=== PATIENT | female | born 1975 | race Caucasian/White ===

== ENCOUNTER 2018-04-03 10:32 | Day surgery (SDC) | payer BC ==
[2018-03-28 16:20] LABS: BASOPHILS % (AUTO) 0.7 % (0-1); EOSINOPHILS # (AUTO) 0.2 X10'3 (0-0.9); EOSINOPHILS % (AUTO) 3.9 % (0-6); LYMPHOCYTES # (AUTO) 1.7 X10'3 (1.1-4.8); LYMPHOCYTES % (AUTO) 31.8 % (21-51); MEAN CORPUSCULAR HEMOGLOBIN 31.7 PG (27.0-31.0); MEAN CORPUSCULAR VOLUME 90.5 FL (78-98); MEAN PLATELET VOLUME 10.1 FL (7.4-10.4); MONOCYTES # (AUTO) 0.3 X10'3 (0-0.9); MONOCYTES % (AUTO) 6.3 % (2-12); NEUTROPHILS # (AUTO) 3.1 X10'3 (1.8-7.7); NEUTROPHILS % (AUTO) 57.3 % (42-75); PRE OP HEMATOCRIT 44.2 % (35.0-45.0); PRE OP HEMOGLOBIN 15.5 g/dL (12.0-16.0); PRE OP PLATELET COUNT 255 X10'3 (140-440); RED BLOOD COUNT 4.88 X10'6 (4.20-5.60); RED CELL DISTRIBUTION WIDTH 13.3 % (11.5-14.5)
[2018-03-28 16:30] LABS: CLARITY,URINE SLIGHTLY CLOUDY (Clear); COLOR,URINE YELLOW (Yellow); GLUCOSE, URINE NEGATIVE (Neg); KETONES,URINE NEGATIVE (Neg); LEUKOCYTE ESTERASE ,URINE NEGATIVE (Neg); NITRITES, URINE NEGATIVE (Neg); OCCULT BLOOD,URINE TRACE-LYSED (Neg); PH,URINE 5.5 (4.8-8.0); PROTEIN,URINE NEGATIVE (Neg); UROBILINOGEN,URINE 0.2 E.U/dL (0.2-1.0)
[2018-03-28 16:35] LABS: UA COLLECTION TYPE CLN CATCH MIDSTREAM
[2018-03-28 16:36] LABS: ALBUMIN/GLOBULIN RATIO 1.2 (1.1-1.5); ALKALINE PHOSPHATASE 68 IU/L (46-116); BLOOD UREA NITROGEN 10 MG/DL (7-18); BUN/CREATININE RATIO 10.5 (6.6-38.0); CHLORIDE 104 MMOL/L (99-107); CREATININE 0.95 MG/DL (0.40-0.90); PRE OP ALT 25 U/L (30-65); PRE OP ANION GAP 8 (8-16); PRE OP AST 17 U/L (10-37); PRE OP BILIRUB, TOTAL 0.6 MG/DL (0.0-1.0); PRE OP GLUCOSE 94 MG/DL (70-104); PRE OP POTASSIUM 3.6 MMOL/L (3.4-5.1); PRE OP SODIUM 140 MMOL/L (135-145); TOTAL CARBON DIOXIDE 27.9 MMOL/L (24-32); TOTAL PROTEIN 7.4 G/DL (6.4-8.2); eGFR 65 ML/MIN
[2018-03-28 16:36] LABS: MUCUS STRANDS MODERATE /LPF (Neg)
[2018-03-28 16:37] LABS: BACTERIA,URINE 1+ /HPF (Neg); RBC,URINE 0-2 /HPF (0-2); SQUAMOUS EPITHELIAL CELL,UR MODERATE /LPF (FEW); WBC,URINE 0-4 /HPF (0-4)
[~2018-04-03] VITALS: Ht 162.6 cm; Wt 90.1 kg
[2018-04-03] VITALS (10 sets, daily range): BP systolic 134–176; BP diastolic 54–115
[~2018-04-03 10:32] MED LIST: ASCO500C15 PO; CIME200T12 PO; Cefazolin 2GM/50ML dext iso,osmotic IVPB IV ONE; famotidine 20mg tablet PO ONE; ringers solution, lacted 1,000 ML IV SCH
[2018-04-03] MEDS ORDERED: LIDOcaine 1% (10mg/ml) 2ml vial ONE (11:12)
[2018-04-03] MEDS ORDERED: ringers solution, lacted 1,000 ML IV SCH (11:56)
[2018-04-03] MEDS ORDERED: meperidine/PF 25mg/ml syringe IV PRN ×2 (12:00)
[2018-04-03] MEDS ORDERED: ondansetron/PF 4mg/2ml inj IV PRN (12:00)
[2018-04-03] MEDS ORDERED: morphine 4 MG/ML inj SYRINge IV PRN ×2 (12:00)
[2018-04-03] MEDS ORDERED: scopolamine 1.5mg patch.TD72 TD ONE (13:06)
[2018-04-03] MEDS ORDERED: neostigmine methylsulfate 1 MG/ML 10ml vial ONE (13:13)
[2018-04-03] MEDS ORDERED: glycopyrrolate 0.2mg/ml inj ONE (13:13)
[2018-04-03] MEDS ORDERED: sevoflurane 250ml liquid IH ONE (13:13)
[2018-04-03] MEDS ORDERED: propofol inj 20 ML IV ONE (13:14)
[2018-04-03] MEDS ORDERED: fentaNYL/PF 50MCG/1 ML 2ML syringe ONE (13:14)
[2018-04-03] MEDS ORDERED: midazolam 2 mg/2 ml injection ONE (13:14)
[2018-04-03] MEDS ORDERED: rocuronium 10mg/ml inj IV ONE (13:15)
[2018-04-03] MEDS ORDERED: dexamethasone sod phosphate 4mg/ml inj. ONE (13:39)
[2018-04-03] MEDS ORDERED: ondansetron/PF 4mg/2ml inj ONE (13:39)
[2018-04-03] MEDS: meperidine/PF 25mg/ml syringe IV PRN ×2 (14:32→14:41)
[2018-04-03] MEDS ORDERED: acetaminophen 1,000mg/100ml IV 100 ML IV ONE (14:35)
[2018-04-03] MEDS ORDERED: hydrALAZINE 20mg/ml inj. IV PRN (14:35)
[2018-04-03] MEDS ORDERED: acetaminophen w/codeine (30MG) #3 tablet PO ONE (15:15)
== END 2018-04-03 15:45 | disposition home or self-care (01) ==
LOC: PAS 10:32
PROVIDERS: ATTEND Surgery
DX: K80.10 Calculus of gallbladder with chronic cholecystitis without obstruction (principal); I10 Essential (primary) hypertension; E66.9 Obesity, unspecified; Z72.89 Other problems related to lifestyle; Z90.710 Acquired absence of both cervix and uterus; Z87.891 Personal history of nicotine dependence; Z98.890 Other specified postprocedural states; Z79.899 Other long term (current) drug therapy; Z88.8 Allergy status to other drugs, medicaments and biological substances; Z68.34 Body mass index [BMI] 34.0-34.9, adult
CPT/HCPCS: 36415; 47562; 80053; 81001; 85025; 93005; A6251; J0131; J0360; J0690; J1100; J2175; J2250; J2270; J2405; J2704; J2710; J3010; J3490; J7120; A7000

== ENCOUNTER 2023-06-07 08:57 | Outpatient (CLI) | payer BC ==
[~2023-06-07 08:57] MED LIST changes: -ASCO500C15 PO; +ASCO500C18 PO; -Cefazolin 2GM/50ML dext iso,osmotic IVPB IV ONE; -famotidine 20mg tablet PO ONE; -ringers solution, lacted 1,000 ML IV SCH
== END 2023-06-07 23:59 | disposition home or self-care (01) ==
LOC: RAD 08:57
PROVIDERS: ATTEND Family Medicine
DX: K44.9 Diaphragmatic hernia without obstruction or gangrene (principal); E86.0 Dehydration; K92.0 Hematemesis; E87.6 Hypokalemia; K65.9 Peritonitis, unspecified; I51.7 Cardiomegaly; Z90.49 Acquired absence of other specified parts of digestive tract
CPT/HCPCS: 71250; 74176

== ENCOUNTER 2024-04-20 08:43 | Inpatient (IN) | payer BC ==
[~2024-04-20] VITALS: Ht 162.6 cm; Wt 77.2 kg
--- NOTE | 2024-04-20 09:11 | NUR ---
graphic arts technician at bedside
[2024-04-20 09:28] LABS: BASOPHILS # (AUTO) 0.1 X10'3 (0-0.2); BASOPHILS % (AUTO) 0.8 % (0-1); EOSINOPHILS % (AUTO) 0 % (0-6); HEMATOCRIT 47.1 % (35.0-45.0); HEMOGLOBIN 16.5 g/dl (12.0-16.0); LYMPHOCYTES # (AUTO) 1.1 X10'3 (1.1-4.8); LYMPHOCYTES % (AUTO) 6.8 % (21-51); MEAN CORPUSCULAR HEMOGLOBIN 32.7 PG (27.0-31.0); MEAN CORPUSCULAR VOLUME 93.4 FL (78-98); MEAN PLATELET VOLUME 9.6 FL (7.4-10.4); MONOCYTES # (AUTO) 1.1 X10'3 (0-0.9); MONOCYTES % (AUTO) 6.6 % (2-12); NEUTROPHILS # (AUTO) 13.7 X10'3 (1.8-7.7); NEUTROPHILS % (AUTO) 85.8 % (42-75); PLATELET COUNT 397 X10'3 (140-440); RED BLOOD COUNT 5.05 X10'6 (4.20-5.60); RED CELL DISTRIBUTION WIDTH 13.4 % (11.5-14.5)
[2024-04-20 09:29] LABS: ALBUMIN 4.7 G/DL (3.4-5.0); ANION GAP 20 (8-16); BLOOD UREA NITROGEN 24 MG/DL (7-18); BUN/CREATININE RATIO 16.6 (10.0-20.0); CALCIUM 10.7 MG/DL (8.5-10.1); CHLORIDE 99 MMOL/L (99-107); CREATININE 1.45 MG/DL (0.40-0.90); LIPASE 25 U/L (16-77); POTASSIUM 2.8 MMOL/L (3.5-5.1); SODIUM 143 MMOL/L (135-145); TOTAL CARBON DIOXIDE 24.5 MMOL/L (24-32); eCRCL 41 ML/MIN; eGFR 39 ML/MIN
[2024-04-20] MEDS ORDERED: potassium Cl 20mEq/100mL bag 100 ML IV PRN (09:30)
[2024-04-20] MEDS ORDERED: potassium Cl 40MEQ/270ML bag 250 ML IV PRN (09:30)
[2024-04-20] MEDS ORDERED: magnesium sulf-water 2g/50mL 50 ML IV PRN ×2 (09:30→10:55)
[2024-04-20] MEDS ORDERED: potassium CL 10mEq/100ml bag 100 ML IV PRN (09:30)
[2024-04-20] MEDS ORDERED: potassium Cl 20 mEq SR tablet PO PRN ×2 (09:30→10:55)
[2024-04-20] MEDS ORDERED: magnesium sulf-water 4G/100mL 100 ML IV PRN ×2 (09:30→10:55)
[2024-04-20 09:34] LABS: GLUCOSE 158 MG/DL (70-104)
[2024-04-20] MEDS: morphine 4 MG/ML inj SYRINge IV ONE (09:45)
[2024-04-20] MEDS: metoclopramide 5 mg/ml inj IV ONE (09:46)
[2024-04-20] MEDS: diphenhydrAMINE 50 mg/ml inj IV ONE (09:47)
[2024-04-20] MEDS: dicyclomine 10mg/ml 2ml ampule IM ONE (09:48)
[2024-04-20] MEDS: pantoprazole 40 MG vial IV ONE (09:50)
[2024-04-20] MEDS: normal saline 1000ML IV soln IVB ONE (09:53)
[2024-04-20] MEDS: potassium Cl 40MEQ/1/2NS 520ml 520 ML IV PRN (10:28)
[2024-04-20 10:48] LABS: MAGNESIUM 1.9 MG/DL (1.5-2.4)
[2024-04-20] MEDS ORDERED: HYDROcodone/acetaminophen 10/325mg tab PO PRN (10:55)
[2024-04-20] MEDS ORDERED: acetaminophen 325mg tablet PO PRN ×2 (10:55)
[2024-04-20] MEDS ORDERED: morphine 2 MG/ML inj. syringe IV PRN (10:55)
[2024-04-20] MEDS ORDERED: magnesium Cl slow-release 64mg tablet PO PRN (10:55)
[2024-04-20] MEDS ORDERED: potassium Cl 40MEQ/1/2NS 520ml 520 ML IV PRN (10:55)
[2024-04-20] MEDS ORDERED: HYDROcodone/acetaminophen 5mg/325mg tablet PO PRN (10:55)
[2024-04-20] MEDS ORDERED: iohexol 300mg/ml 100ml inj. ONE (11:11)
--- NOTE | 2024-04-20 11:12 | NUR ---
Patient to CT
[2024-04-20] MEDS: morphine 2 MG/ML inj. syringe IV PRN (12:03)
[2024-04-20] MEDS: ondansetron/PF 4mg/2ml inj IV PRN (12:03)
[2024-04-20] MEDS: potassium Cl 20mEq in NS 1,000 ML IV SCH (12:04)
--- NOTE | 2024-04-20 12:06 | NUR ---
Attempted to call report. Receiving nurse needs to give report on current patient prior to accepting new patient, will call when ready.
--- NOTE | 2024-04-20 12:07 | NUR ---
DR Allen at bedside ,informed that pt is on iv potassium ,as per md edwin bernal the 20 mEq iv orders.
[2024-04-20] MEDS: metroNIDAZOLE-Flagyl 500mg/NS 100 ML IV SCH (12:09)
[2024-04-20 12:45] VITALS: BP 137/79; PULSE 86; RESP 16; TEMP 99.5; O2SAT 86
--- NOTE | 2024-04-20 12:45 | NUR ---
Pt Arrived via gurney from ED to [facility]. Oriented by PAT Doss to room & POC. Bed low, call light in reach. Friend at bedside.
[2024-04-20 13:00] VITALS: RESP 16; O2SAT 98
[2024-04-20] MEDS ORDERED: ONDANSETRON IV ONE (13:55)
[2024-04-20] MEDS ORDERED: NORMAL SALINE IV ONE (13:55)
--- NOTE | 2024-04-20 14:03 | NUR ---
Discussed poc for nausea management and need for urine specimen. Pt reports last normal BP was . Her throat sounds hoarse and gravely. Noted left forefinger was bruised and asked why. Pt reports yesterday she felt emesis at the back of her throat that would not come out so she used her finger to induce.
[2024-04-20] MEDS: ondansetron/PF 4mg/2ml inj IV ONE (14:45)
[2024-04-20] MEDS: ciprofloxacin lact 400MG/200ML 200 ML IV SCH (14:46)
[2024-04-20 15:14] LABS: BILIRUBIN,URINE SMALL (Neg); CLARITY,URINE CLEAR (Clear); COLOR,URINE YELLOW (Yellow); GLUCOSE, URINE NEGATIVE (Neg); KETONES,URINE 40 mg/dl (Neg); LEUKOCYTE ESTERASE ,URINE NEGATIVE (Neg); NITRITES, URINE NEGATIVE (Neg); OCCULT BLOOD,URINE NEGATIVE (Neg); PH,URINE 6.5 (4.8-8.0); PROTEIN,URINE 30 mg/dl (Neg)
[2024-04-20 15:17] LABS: UA COLLECTION TYPE CLN CATCH MIDSTREAM
[2024-04-20 15:18] LABS: BACTERIA,URINE NONE SEEN /HPF (Neg); MUCUS STRANDS FEW /LPF (Neg); RBC,URINE NONE SEEN /HPF (0-2); SQUAMOUS EPITHELIAL CELL,UR FEW /LPF (FEW); WBC,URINE NONE SEEN /HPF (0-4)
[2024-04-20 15:22] LABS: URINE AMPHETAMINE SCREEN NEGATIVE (Neg); URINE BARBITUATE SCREEN NEGATIVE (Neg); URINE BENZODIAZEPINES SCREEN NEGATIVE (Neg); URINE CANNABINOID SCREEN POSITIVE (Neg); URINE COCAINE SCREEN NEGATIVE (Neg); URINE METHADONE SCREEN NEGATIVE (Neg); URINE OPIATE SCREEN POSITIVE (Neg); URINE PHENCYCLIDINE SCREEN NEGATIVE (Neg)
--- NOTE | 2024-04-20 15:25 | NUR ---
Organ failure d/t CKD stage 3 Addendum: 04/20/24 at 1527 by Gemma Cee RN Amended: Links added.
[2024-04-20 18:00] VITALS: BP 134/81; PULSE 87; RESP 15; TEMP 98; O2SAT 97
--- NOTE | 2024-04-20 18:46 | NUR ---
Problems reprioritized. Patient report given, questions answered & plan of care reviewed.
--- NOTE | 2024-04-20 18:53 | NUR ---
Patient in room [facility]. I have received report from SCOTT STEWART and had the opportunity to ask questions and assume patient care.
[2024-04-20] MEDS: pantoprazole 40mg Tablet.DR PO SCH (19:48)
[2024-04-20] MEDS: enoxaparin 40mg/0.4ml syringe SQ SCH (19:49)
[2024-04-20 20:00] VITALS: RESP 15; O2SAT 97
[2024-04-20] MEDS ORDERED: HYDR12.55 PO (21:23)
[2024-04-20] MEDS ORDERED: LISI40TA13 PO (21:23)
[2024-04-20] MEDS ORDERED: TIRZ5PEN SQ (21:24)
[2024-04-20 22:00] VITALS: BP 107/69; PULSE 68; RESP 18; TEMP 98.4; O2SAT 98
[2024-04-21 06:28] VITALS: BP 109/65; PULSE 78; RESP 21; TEMP 97.1; O2SAT 98
--- NOTE | 2024-04-21 06:46 | NUR ---
Problems reprioritized. Patient report given, questions answered & plan of care reviewed with MULU STEWART.
[2024-04-21] MEDS: ascorbic acid 500mg tablet PO SCH (07:24)
[2024-04-21] MEDS: lisinopril 20mg tablet PO SCH (07:24)
[2024-04-21] MEDS: HYDROchlorothiazide 12.5mg capsule PO SCH (07:25)
[2024-04-21] MEDS: famotidine 20mg tablet PO SCH (07:25)
[2024-04-21 07:42] LABS: BASOPHILS % (AUTO) 0.6 % (0-1); EOSINOPHILS % (AUTO) 0.6 % (0-6); HEMATOCRIT 37.2 % (35.0-45.0); HEMOGLOBIN 12.7 g/dl (12.0-16.0); LYMPHOCYTES # (AUTO) 2.6 X10'3 (1.1-4.8); LYMPHOCYTES % (AUTO) 31.8 % (21-51); MEAN CORPUSCULAR HEMOGLOBIN 32.8 PG (27.0-31.0); MEAN CORPUSCULAR HGB CONC 34.2 g/dL (33.0-36.5); MEAN PLATELET VOLUME 9.5 FL (7.4-10.4); MONOCYTES # (AUTO) 0.8 X10'3 (0-0.9); MONOCYTES % (AUTO) 9.5 % (2-12); NEUTROPHILS # (AUTO) 4.7 X10'3 (1.8-7.7); NEUTROPHILS % (AUTO) 57.5 % (42-75); PLATELET COUNT 224 X10'3 (140-440); RED BLOOD COUNT 3.88 X10'6 (4.20-5.60); RED CELL DISTRIBUTION WIDTH 13.5 % (11.5-14.5); WHITE BLOOD COUNT 8.1 X10'3 (4.5-11.0)
[2024-04-21 07:54] LABS: ALANINE AMINOTRANSFERASE 28 U/L (12-78); ALBUMIN 2.9 G/DL (3.4-5.0); ALBUMIN/GLOBULIN RATIO 1.1 (1.1-1.5); ALKALINE PHOSPHATASE 30 IU/L (46-116); ANION GAP 9 (8-16); ASPARTATE AMINO TRANSFERASE 36 U/L (10-37); BILIRUBIN,TOTAL 0.9 MG/DL (0.1-1.0); BLOOD UREA NITROGEN 10 MG/DL (7-18); BUN/CREATININE RATIO 10.5 (10.0-20.0); CALCIUM 8.2 MG/DL (8.5-10.1); CHLORIDE 110 MMOL/L (99-107); CREATININE 0.95 MG/DL (0.40-0.90); GLUCOSE 89 MG/DL (70-104); POTASSIUM 3.5 MMOL/L (3.5-5.1); SODIUM 141 MMOL/L (135-145); TOTAL CARBON DIOXIDE 22.5 MMOL/L (24-32); TOTAL PROTEIN 5.5 G/DL (6.4-8.2); eCRCL 63 ML/MIN; eGFR 63 ML/MIN
[2024-04-21 08:00] VITALS: RESP 14; O2SAT 96
[2024-04-21] MEDS ORDERED: HALLS - SOOTHE MENTHOL 1.8 MG cough drop LOZENGE MM PRN (08:30)
[2024-04-21 10:00] VITALS: BP 116/69; PULSE 68; RESP 12; TEMP 98; O2SAT 98
[2024-04-21] MEDS: dicyclomine 10mg/ml 2ml ampule IM ONE (11:00)
[2024-04-21 18:00] VITALS: BP 131/88; PULSE 69; RESP 18; TEMP 99.1; O2SAT 99
[2024-04-21 20:00] VITALS: RESP 18; O2SAT 99
[2024-04-21 22:00] VITALS: BP 138/94; PULSE 73; RESP 16; TEMP 98.1; O2SAT 98
--- NOTE | 2024-04-22 01:30 | NUR ---
REPORT GIVEN TO PAT WINKLER FROM PAT AWAD.
[2024-04-22 02:17] LABS: BASOPHILS % (AUTO) 0.8 % (0-1); EOSINOPHILS # (AUTO) 0.1 X10'3 (0-0.9); EOSINOPHILS % (AUTO) 1.9 % (0-6); HEMATOCRIT 36.4 % (35.0-45.0); HEMOGLOBIN 12.4 g/dl (12.0-16.0); LYMPHOCYTES # (AUTO) 2.5 X10'3 (1.1-4.8); LYMPHOCYTES % (AUTO) 38.6 % (21-51); MEAN CORPUSCULAR HEMOGLOBIN 32.9 PG (27.0-31.0); MEAN CORPUSCULAR HGB CONC 34.2 g/dL (33.0-36.5); MEAN CORPUSCULAR VOLUME 96.4 FL (78-98); MEAN PLATELET VOLUME 9.5 FL (7.4-10.4); MONOCYTES # (AUTO) 0.6 X10'3 (0-0.9); MONOCYTES % (AUTO) 9.2 % (2-12); NEUTROPHILS # (AUTO) 3.2 X10'3 (1.8-7.7); NEUTROPHILS % (AUTO) 49.5 % (42-75); PLATELET COUNT 215 X10'3 (140-440); RED BLOOD COUNT 3.77 X10'6 (4.20-5.60); RED CELL DISTRIBUTION WIDTH 13.3 % (11.5-14.5); WHITE BLOOD COUNT 6.4 X10'3 (4.5-11.0)
[2024-04-22 02:40] LABS: ALANINE AMINOTRANSFERASE 35 U/L (12-78); ALBUMIN 2.9 G/DL (3.4-5.0); ALBUMIN/GLOBULIN RATIO 1.1 (1.1-1.5); ALKALINE PHOSPHATASE 29 IU/L (46-116); ANION GAP 9 (8-16); ASPARTATE AMINO TRANSFERASE 36 U/L (10-37); BILIRUBIN,TOTAL 0.7 MG/DL (0.1-1.0); BLOOD UREA NITROGEN 6 MG/DL (7-18); CALCIUM 8.3 MG/DL (8.5-10.1); CHLORIDE 108 MMOL/L (99-107); CREATININE 0.86 MG/DL (0.40-0.90); GLUCOSE 90 MG/DL (70-104); POTASSIUM 3.2 MMOL/L (3.5-5.1); SODIUM 141 MMOL/L (135-145); TOTAL PROTEIN 5.5 G/DL (6.4-8.2); eCRCL 69 ML/MIN; eGFR 70 ML/MIN
--- NOTE | 2024-04-22 06:20 | NUR ---
Problems reprioritized. Patient report given, questions answered & plan of care reviewed with Kerry. Addendum: 04/22/24 at 0620 by Rachid Stanley RN Amended: Links added.
[2024-04-22 06:46] VITALS: BP 106/59; PULSE 61; RESP 15; TEMP 97.1; O2SAT 97
[2024-04-22] MEDS: lisinopril 10 MG tablet PO SCH (08:00)
--- NOTE | 2024-04-22 08:23 | NUR ---
PAGER ID: [phone] MESSAGE: [id number] K is back down to 3.2 even with K added to fluids. Patient WBC 6.4 do you still want abx for her to be infused? She doesn't have a Mg pulled, do you want me to add on to last labs? Kerry [phone]
[2024-04-22] MEDS: metoclopramide 5 mg/ml inj IV ONE (08:40)
[2024-04-22] MEDS: potassium Cl 20 mEq SR tablet PO PRN (08:40)
[2024-04-22 08:45] VITALS: RESP 16
[2024-04-22 10:00] VITALS: BP 121/82; PULSE 63; RESP 16; TEMP 98.6; O2SAT 97
[2024-04-22] MEDS ORDERED: LISI10TA27 PO (10:09)
[2024-04-22] MEDS ORDERED: PANT40TA54 PO (10:09)
[2024-04-22] MEDS ORDERED: POTA-207 PO (10:12)
[2024-04-22 10:23] LABS: MAGNESIUM 1.7 MG/DL (1.5-2.4)
--- NOTE | 2024-04-22 11:53 | NUR ---
Patient discharged on paperwork, waiting on a ride home
--- NOTE | 2024-04-22 12:25 | NUR ---
Patient discharged by to lobby with staff. picked up patient. All belongings with patient. IVs removed. Education completed with verbal acknowledgement of understanding. Patient aware to picker/puller new medications, and when to take home medications. Patient will make appt with PCP and follow up with labs.
[2024-04-22] MEDS ORDERED: metroNIDAZOLE 500mg tablet PO SCH (20:00)
[2024-04-22] MEDS ORDERED: ciprofloxacin 250mg tablet PO SCH (22:00)
== END 2024-04-22 13:37 | disposition home or self-care (01) | DRG 641 ==
LOC: ER 08:44 → ED HOLD 11:01 → ORTHO 4S 12:40
PROVIDERS: ADMIT Internal Medicine; ATTEND Internal Medicine
DX: E87.6 Hypokalemia (principal); N17.9 Acute kidney failure, unspecified; R65.10 Systemic inflammatory response syndrome (SIRS) of non-infectious origin without acute organ dysfunction; K52.9 Noninfective gastroenteritis and colitis, unspecified; D72.829 Elevated white blood cell count, unspecified; F12.90 Cannabis use, unspecified, uncomplicated; K76.0 Fatty (change of) liver, not elsewhere classified; N18.30 Chronic kidney disease, stage 3 unspecified; Z79.899 Other long term (current) drug therapy; Z87.11 Personal history of peptic ulcer disease; Z88.8 Allergy status to other drugs, medicaments and biological substances
CPT/HCPCS: 36415; 74177; 76700; 80048; 80053; 80305; 81001; 83605; 83690; 83735; 84132; 84145; 84484; 85025; 87040; 87081; 96361; 96372; 96374; 96375; 97116; 97161; 97530; 99285; G0378; J0500; J0744; J1200; J1650; J2270; J2405; J2470; J2765; J3480; J3490; J7030; Q9967

== ENCOUNTER 2024-05-13 08:50 | Emergency (ER) | payer BC ==
[~2024-05-13] VITALS: Ht 162.6 cm; Wt 75.0 kg
[~2024-05-13 08:50] MED LIST changes: -CIME200T12 PO; +LISI10TA27 PO; +PANT40TA54 PO; +TIRZ5PEN SQ
[2024-05-13 09:47] LABS: BASOPHILS % (AUTO) 0.3 % (0-1); EOSINOPHILS % (AUTO) 0.3 % (0-6); HEMATOCRIT 44.8 % (35.0-45.0); LYMPHOCYTES % (AUTO) 8.5 % (21-51); MEAN CORPUSCULAR HEMOGLOBIN 32.5 PG (27.0-31.0); MEAN CORPUSCULAR HGB CONC 33.5 g/dL (33.0-36.5); MEAN CORPUSCULAR VOLUME 97.1 FL (78-98); MEAN PLATELET VOLUME 9.6 FL (7.4-10.4); MONOCYTES # (AUTO) 0.5 X10'3 (0-0.9); MONOCYTES % (AUTO) 4.1 % (2-12); NEUTROPHILS # (AUTO) 9.7 X10'3 (1.8-7.7); NEUTROPHILS % (AUTO) 86.8 % (42-75); PLATELET COUNT 323 X10'3 (140-440); RED BLOOD COUNT 4.62 X10'6 (4.20-5.60); RED CELL DISTRIBUTION WIDTH 13.3 % (11.5-14.5); WHITE BLOOD COUNT 11.2 X10'3 (4.5-11.0)
[2024-05-13 09:57] LABS: ALANINE AMINOTRANSFERASE 20 U/L (12-78); ALBUMIN/GLOBULIN RATIO 1.2 (1.1-1.5); ALKALINE PHOSPHATASE 42 IU/L (46-116); ANION GAP 17 (8-16); ASPARTATE AMINO TRANSFERASE 16 U/L (10-37); BILIRUBIN,TOTAL 1.1 MG/DL (0.1-1.0); BLOOD UREA NITROGEN 8 MG/DL (7-18); BUN/CREATININE RATIO 9.1 (10.0-20.0); CALCIUM 9.7 MG/DL (8.5-10.1); CHLORIDE 107 MMOL/L (99-107); CREATININE 0.88 MG/DL (0.40-0.90); GLUCOSE 136 MG/DL (70-104); LIPASE 43 U/L (16-77); POTASSIUM 3.7 MMOL/L (3.5-5.1); SODIUM 141 MMOL/L (135-145); TOTAL CARBON DIOXIDE 17.3 MMOL/L (24-32); TOTAL PROTEIN 7.3 G/DL (6.4-8.2); eCRCL 68 ML/MIN; eGFR 69 ML/MIN
[2024-05-13] MEDS: normal saline 1000ml 1,000 ML IV ONE (11:20)
[2024-05-13] MEDS: ondansetron/PF 4mg/2ml inj IV ONE (11:21)
[2024-05-13] MEDS: metoclopramide 5 mg/ml inj IV ONE (11:23)
[2024-05-13] MEDS: diphenhydrAMINE 50 mg/ml inj IV ONE (11:23)
[2024-05-13 11:44] VITALS: TEMP 97.3
[2024-05-13 14:17] LABS: PRO BRAIN NATRIURETIC PEPTIDE 63 PG/ML (0-125)
[2024-05-13 15:44] LABS: ALBUMIN 3.5 G/DL (3.4-5.0); ANION GAP 8 (8-16); BLOOD UREA NITROGEN 6 MG/DL (7-18); BUN/CREATININE RATIO 8.1 (10.0-20.0); CALCIUM 8.6 MG/DL (8.5-10.1); CHLORIDE 110 MMOL/L (99-107); CREATININE 0.74 MG/DL (0.40-0.90); GLUCOSE 93 MG/DL (70-104); POTASSIUM 3.9 MMOL/L (3.5-5.1); SODIUM 141 MMOL/L (135-145); TOTAL CARBON DIOXIDE 22.9 MMOL/L (24-32); eCRCL 80 ML/MIN; eGFR 84 ML/MIN
[2024-05-13] MEDS ORDERED: METO-292 PO (16:18)
[2024-05-13 16:39] VITALS: BP 106/62; PULSE 98; RESP 16; O2SAT 95
[2024-05-13 16:51] LABS: URINE HCG NEGATIVE (NEG)
[2024-05-13 16:55] LABS: BILIRUBIN,URINE SMALL (Neg); CLARITY,URINE SLIGHTLY CLOUDY (Clear); COLOR,URINE YELLOW (Yellow); GLUCOSE, URINE NEGATIVE (Neg); KETONES,URINE >=80 mg/dl (Neg); LEUKOCYTE ESTERASE ,URINE NEGATIVE (Neg); NITRITES, URINE NEGATIVE (Neg); OCCULT BLOOD,URINE NEGATIVE (Neg); PROTEIN,URINE TRACE mg/dl (Neg)
[2024-05-13 16:56] LABS: UA COLLECTION TYPE NON-SPECIFIED
[2024-05-13 16:57] LABS: MUCUS STRANDS MANY /LPF (Neg); SQUAMOUS EPITHELIAL CELL,UR MANY /LPF (FEW)
[2024-05-13 16:59] LABS: BACTERIA,URINE 2+ /HPF (Neg); RBC,URINE 0-2 /HPF (0-2); WBC,URINE 0-4 /HPF (0-4)
== END 2024-05-13 16:40 | disposition home or self-care (01) ==
LOC: ER 08:50
DX: E86.0 Dehydration (principal); R11.10 Vomiting, unspecified; Z88.8 Allergy status to other drugs, medicaments and biological substances; Z79.899 Other long term (current) drug therapy
CPT/HCPCS: 36415; 80048; 80053; 81001; 81025; 83690; 83880; 85025; 96361; 96374; 96375; 99284; J1200; J2405; J2765; J7030

== ENCOUNTER 2024-06-12 14:59 | Emergency (ER) | payer BC ==
[~2024-06-12] VITALS: Ht 162.6 cm; Wt 71.8 kg
[~2024-06-12 14:59] MED LIST changes: +METO-292 PO
[2024-06-12] MEDS: normal saline 1000ML IV soln IVB ONE (16:44)
[2024-06-12] MEDS: metoclopramide 5 mg/ml inj IV ONE (16:46)
[2024-06-12] MEDS: diphenhydrAMINE 50 mg/ml inj IV ONE (16:46)
[2024-06-12 17:00] LABS: BASOPHILS % (AUTO) 0.3 % (0-1); EOSINOPHILS % (AUTO) 0.1 % (0-6); HEMATOCRIT 43.4 % (35.0-45.0); HEMOGLOBIN 14.5 g/dl (12.0-16.0); LYMPHOCYTES % (AUTO) 6.1 % (21-51); MEAN CORPUSCULAR HEMOGLOBIN 31.2 PG (27.0-31.0); MEAN CORPUSCULAR HGB CONC 33.4 g/dL (33.0-36.5); MEAN CORPUSCULAR VOLUME 93.5 FL (78-98); MEAN PLATELET VOLUME 9.2 FL (7.4-10.4); MONOCYTES % (AUTO) 5.7 % (2-12); NEUTROPHILS # (AUTO) 14.7 X10'3 (1.8-7.7); NEUTROPHILS % (AUTO) 87.8 % (42-75); PLATELET COUNT 354 X10'3 (140-440); RED BLOOD COUNT 4.64 X10'6 (4.20-5.60); RED CELL DISTRIBUTION WIDTH 12.7 % (11.5-14.5); WHITE BLOOD COUNT 16.8 X10'3 (4.5-11.0)
[2024-06-12 17:12] LABS: ALANINE AMINOTRANSFERASE 22 U/L (12-78); ALBUMIN 4.1 G/DL (3.4-5.0); ALBUMIN/GLOBULIN RATIO 1.2 (1.1-1.5); ALKALINE PHOSPHATASE 48 IU/L (46-116); ANION GAP 15 (8-16); ASPARTATE AMINO TRANSFERASE 15 U/L (10-37); BILIRUBIN,TOTAL 1.1 MG/DL (0.1-1.0); BLOOD UREA NITROGEN 13 MG/DL (7-18); BUN/CREATININE RATIO 11.3 (10.0-20.0); CALCIUM 9.4 MG/DL (8.5-10.1); CHLORIDE 101 MMOL/L (99-107); CREATININE 1.15 MG/DL (0.40-0.90); GLUCOSE 151 MG/DL (70-104); LIPASE 33 U/L (16-77); POTASSIUM 3.2 MMOL/L (3.5-5.1); SODIUM 139 MMOL/L (135-145); TOTAL CARBON DIOXIDE 23.2 MMOL/L (24-32); TOTAL PROTEIN 7.5 G/DL (6.4-8.2); eCRCL 52 ML/MIN; eGFR 50 ML/MIN
[2024-06-12 18:17] VITALS: BP 114/70; PULSE 82; RESP 18; TEMP 98; O2SAT 98
== END 2024-06-12 18:18 | disposition home or self-care (01) ==
LOC: ER 15:00
DX: R11.10 Vomiting, unspecified (principal); R10.84 Generalized abdominal pain; R19.7 Diarrhea, unspecified; Z88.8 Allergy status to other drugs, medicaments and biological substances; Z79.899 Other long term (current) drug therapy
CPT/HCPCS: 36415; 80053; 83690; 85025; 96361; 96374; 96375; 99285; J1200; J2765; J7030

== ENCOUNTER 2025-05-19 10:47 | Emergency (ER) | payer BC ==
[~2025-05-19] VITALS: Ht 162.6 cm; Wt 57.3 kg
[2025-05-19 11:06] VITALS: TEMP 97
[2025-05-19 11:24] LABS: MEAN PLATELET VOLUME 10.4 FL (7.4-10.4); RED CELL DISTRIBUTION WIDTH 13.7 % (11.5-14.5)
--- NOTE | 2025-05-19 11:40 | RADIOLOGY REPORT ---
CHEST RADIOGRAPH Indication: CP Technique: Single frontal view of the chest was obtained COMPARISON: CT CT CHEST ABDOMEN PELVIS on DOS: 06/07/23 FINDINGS: Lines and Tubes: None Lungs: Clear Pleura: No effusion. No pneumothorax. Cardiomediastinal contours: Unremarkable Bones: Unremarkable IMPRESSION: No acute disease.
[2025-05-19 11:44] LABS: CREATININE 0.77 MG/DL (0.40-0.90); PRO BRAIN NATRIURETIC PEPTIDE 163 PG/ML (0-125); TOTAL CARBON DIOXIDE 29.0 MMOL/L (24-32); eCRCL 76 ML/MIN; eGFR 80 ML/MIN
--- NOTE | 2025-05-19 12:09 | ELECTROCARDIOGRAPH REPORT ---
[facility] Test Date: 2025-05-19 Test Time: 10:52:38 Pat Name: CHRISTI HUGGINS Department: EMERGENCY ROOM Room: Gender: F Large Engine Assembler: BETY : 1975 Requested By: JESS TORRES Order Number: [id number] Reading MD: Measurements Intervals [place] Rate: 66 P: 73 CO: 155 QRS: 80 QRSD: 94 T: 85 QT: 425 QTc: 446 Interpretive Statements Sinus rhythm Low voltage, precordial leads ST elev, probable normal early repol pattern Please click the below link to view image of tracing.
--- NOTE | 2025-05-19 12:23 | Physician Documentation ---
History of Present Illness ~ Chief Complaint: Chest Pain Stated Complaint: CHEST PAIN Time Seen by MD: 13:19 Primary Medical Doctor: JAVIER HPI Patient was advised to come to the ED after seen her regular doctor today for concerns over a potential AR. reports back pain arm numbness and chest pressur and jaw pain. Has a long history of ulcerative colitis in his lost 80 lb over the last year. She states that her weight has normalized in the last four months. Concern was that she has had low blood pressure recently and was advised to stop taking amlodipine. Continues to take lisinopril. Medication Reconciliation Allergies: Coded Allergies: prochlorperazine (Verified Allergy, Severe, ANAPHYLAXIS, 05/19/25) prochlorperazine edisylate (Verified Allergy, Unknown, 05/19/25) prochlorperazine maleate (Verified Allergy, Unknown, 05/19/25) Scheduled Ascorbic Acid (Vitamin C), 1 CAP PO DAILY, (Reported) Lisinopril (Lisinopril), 10 MG PO DAILY Pantoprazole Sodium (Pantoprazole Sodium), 40 MG PO DAILY Tirzepatide (Mounjaro), 0.5 ML SQ Q7D, (Reported) Scheduled PRN Metoclopramide HCl (Reglan), 1 TAB PO Q6H PRN for nausea/vomiting Past Medical History Past Medical History: Hypertension Review of Systems ROS As stated above in the HPI, otherwise all systems are reviewed and negative. Physical Exam Vital Signs: Temperature: 97.0, Source: Temporal, Heart Rate: 60, Respiratory Rate: 18, BP: 131/87, Pulse Oximetry: 99, Weight: 57.270 Physical Exam VITALS: Reviewed and as above. GENERAL: Alert, nontoxic appearing, no apparent distress. HEENT: RESPIRATORY: No increased work of breathing, no respiratory distress, speaking in full clear sentences CHEST: CV: BACK: GI: MUSCULOSKELETAL: SKIN: NEURO: PSYCH: Progress Results/Orders Results/Orders Orders - TONY GILBERT OVEN UNLOADER Cta Chest Pe (05/19/25 14:39) Ct Head (05/19/25 14:39) Completed Orders - TONY GILBERT OVEN UNLOADER Cta Chest Pe (05/19/25 14:39) Iohexol 350mg/Ml 100ml (Omnipaque 350mg/ (05/19/25 13:51) Ct Head (05/19/25 14:39) Vital Signs 05/19/25 05/19/25 05/19/25 05/19/25 11:06 13:53 13:57 15:16 Temp 97.0 Pulse 60 58 55 Resp 18 18 18 14 B/P (MAP) 131/87 139/75 (96) 128/83 (98) Pulse Ox 99 98 100 O2 Flow Rate 0 0 05/19/25 15:32 Pulse 53 Resp 14 B/P (MAP) 111/73 Pulse Ox 98 Laboratory Tests Test 05/19/25 10:54 05/19/25 13:18 White Blood Count 5.9 Red Blood Count 4.91 Hemoglobin 14.9 Hematocrit 44.8 Mean Corpuscular Volume 91.2 Mean Corpuscular Hemoglobin 30.3 Mean Corpuscular Hemoglobin Concent 33.3 Red Cell Distribution Width 13.7 Platelet Count 253 Mean Platelet Volume 10.4 Neutrophils (%) (Auto) 39.9 L Lymphocytes (%) (Auto) 42.6 Monocytes (%) (Auto) 7.9 Eosinophils (%) (Auto) 8.3 H Basophils (%) (Auto) 1.3 H Neutrophils # (Auto) 2.4 Lymphocytes # (Auto) 2.5 Monocytes # (Auto) 0.5 Eosinophils # (Auto) 0.5 Basophils # (Auto) 0.1 CBC Comment Sodium Level 142 Potassium Level 4.6 Chloride Level 105 Carbon Dioxide Level 29.0 Anion Gap 8 Blood Urea Nitrogen 15 Creatinine 0.77 Estimated GFR/1.73 m2 80 BUN/Creatinine Ratio 19.5 Glucose Level 82 Calcium Level 9.0 Troponin I High Sensitivity 4 5 Pro-B-Type Natriuretic Peptide 163 H Albumin 4.0 Chemistry Comments Troponin I High Sens Percent Delta 25 Troponin I Hi Sens Absolute Change 1 Medical Decision Making Findings MSE performed in triage and patient returned to ED lobby by nursing staff to await available ED room. Patient is hemodynamically stable and initial EKG did not demonstrate STEMI Patient had multiple nonspecific symptoms including numbness in her upper extremities jaw pain back pain chest pressure. Essentially we ruled out an AR via laboratory values in her EKG. Ordered CTs which both chest and head were unremarkable. At this time I am going to recommend that she follows up with neurology in the outpatient setting as we have essentially ruled out any emergent pathology Differential Dx:Considerations: Include: angina, aortic dissection, chest wall pain, cholelithiasis, CHF, costochondritis, esophageal reflux/spasm, gastritis, herpes zoster, myocardial infarction, pericarditis, pleuritis, pancreatitis, pneumonia, pneumothorax, pulmonary embolus, other Departure Disposition: 01 HOME / SELF CARE / HOMELESS Impression: Primary Impression: Chest pain Condition: Stable Discharge Instructions: Nonspecific Chest Pain, Adult Additional Instructions: Your labs x-rays and CTs are all unremarkable in do not explain your symptoms unfortunately I am recommending that she follow up with Neurology and Cardiology for further evaluation of your medications. Referrals: NO PRIMARY CARE PROVIDER (PCP) Education Educated: Patient Educated regarding: diagnosis Signature Scribe Signature: c Attestation: Scribed for Tony Gilbert Needleworker by Tony Carrera NP . 05/19/25 23:29 JESS TORRES May 19, 2025 12:23 TONY GILBERT NP May 19, 2025 13:48
--- NOTE | 2025-05-19 14:56 | RADIOLOGY REPORT ---
CLINICAL HISTORY: DIZZINESS TECHNIQUE: Helical scanning was performed of the head from the skull base to the vertex. Multiplanar reconstructions were performed. This exam was performed according to our departmental dose optimization program. Up-to-date CT equipment and radiation dose reduction techniques are utilized as appropriate. CTDI 68 DLP 1150 COMPARISON: None FINDINGS: There is no evidence for acute intracranial hemorrhage, acute ischemic changes, mass, mass effect, or extra-axial fluid collection. There is no hydrocephalus or midline shift. There is no effacement of the cerebral sulci and basal subarachnoid cisterns. The doyle-white matter differentiation is well maintained. The imaged paranasal sinuses are clear. IMPRESSION: NO ACUTE INTRACRANIAL ABNORMALITY SEEN.
--- NOTE | 2025-05-19 15:11 | RADIOLOGY REPORT ---
Procedure: CT CTA CHEST PE W/ IV [facility] Study Date and Requested Time: 05/19/2025 02:21 PM History: cHEST PRESSURE, Comparison: CT chest abdomen and pelvis 06/07/2023 Dose: CTDI: 7.76 mGy DLP: 109.68 mGycm Technique: Multiplanar images of the chest are obtained with contrast. 3-D image postprocessing was performed and images were used for interpretation and reporting. Findings: Thyroid gland is unremarkable. No evidence of filling defect within the pulmonary arteries to suggest pulmonary embolism. No evidence of aortic aneurysm or dissection. Pulmonary parenchyma within normal limits with no evidence of focal consolidation, mass, or pleural abnormality. Heart within normal limits. Subcentimeter mediastinal lymph nodes which may be reactive. Minimal body wall edema. Left breast punctate calcifications. No evidence of acute osseous abnormalities. Mild gastric wall thickening with mild Wall thickening of Proximal small bowel loops which may be due to inadequate distention. Moderate amount of fecal material within the visualized colon. Status post cholecystectomy. Impression: No evidence of pulmonary embolism, aortic aneurysm, or dissection. No acute intrathoracic abnormality. Mild gastric wall thickening with Mild wall Thickening of proximal small bowel loops which may be due to inadequate distention/mild gastroenteritis.
[2025-05-19 15:32] VITALS: BP 111/73; PULSE 53; RESP 14; O2SAT 98
== END 2025-05-19 15:48 | disposition home or self-care (01) ==
LOC: ER 10:48
DX: R07.9 Chest pain, unspecified (principal); I10 Essential (primary) hypertension; Z88.8 Allergy status to other drugs, medicaments and biological substances; Z79.899 Other long term (current) drug therapy
CPT/HCPCS: 36415; 70450; 71045; 71275; 80048; 83880; 84484; 85025; 93005; 99285; Q9967